=== PATIENT | female | born 1980 | race Caucasian/White ===

== ENCOUNTER 2020-01-26 01:54 | Emergency (ER) | payer BC ==
[2020-01-26] MEDS ORDERED: DIPHTH,PERTUSS(ACELL),TET 0.5 ML DISP.SYRIN IM ONE ×2 (01:58→01:59)
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
[2020-01-26 02:07] VITALS: BP 145/92; PULSE 86; TEMP 98.5; BMI 22.8
[2020-01-26] MEDS ORDERED: CEPHALEXIN MONOHYDRATE 500 MG CAPSULE (UD) ONE (02:35)
[2020-01-26] MEDS ORDERED: CEPHALEXIN MONOHYDRATE 500 MG CAPSULE (UD) PO ONE (02:49)
== END 2020-01-26 03:04 | disposition home or self-care (01) ==
LOC: FER 01:54
PROC: 0HQFXZZ Repair Right Hand Skin, External Approach (ICD-10-PCS; principal; 2020-01-26)
PROC: 3E0234Z Introduction of Serum, Toxoid and Vaccine into Muscle, Percutaneous Approach (ICD-10-PCS; principal; 2020-01-26)
DX: S63.601A Unspecified sprain of right thumb, initial encounter (principal); S61.411A Laceration without foreign body of right hand, initial encounter; Y99.8 Other external cause status
CPT/HCPCS: 73130-TC-RT-FY; 90715; 99283-25

== ENCOUNTER 2020-02-02 14:18 | Emergency (ER) | payer BC ==
[2020-02-02 14:25] VITALS: BP 118/79; PULSE 70; TEMP 99.1; BMI 22.8
--- NOTE | 2020-02-02 14:43 | PDOC ---
Documentation entered by Kaitlin Romo SCRIBE, acting as scribe for Fidel Schumacher MD. Fidel Schumacher MD: This documentation has been prepared by the rubyibDemetrius clemens Maria, SCRIBE, under my direction and personally reviewed by me in its entirety. I confirm that the documentation accurately reflects all work, treatment, procedures, and medical decision making performed by me. Suture Removal/Wound Check HPI - History of Present Illness Chief Complaint: Suture/Staple Removal(Here) Stated Complaint: SUTURE REMOVAL History Source: Yes: Patient Exam Limitations: Yes: No Limitations Treated at: [facility] ED - Previous ED Treatment Type of procedure performed on last visit: Yes: Laceration Repair Tetanus Immunization: Yes: Up to Date - Onset of Previous Treatment Date of Occurence: 01/26/20 Comment:: 02/02/20 14:48 Laceration dorsum of right wrist, sutured 7 days ago, no pain or drainage. Sutures removed from the dorsum of the right wrist. Wound is well healed. No sign of infection, no erythema warmth or drainage. Steri-Strips applied. Keep in place another 2 to 3 days. Follow-up if there is bleeding or sign of infection. Past History - Medical History Allergies/Adverse Reactions: Allergies Allergy/AdvReac Type Severity Reaction Status Date / Time azithromycin Allergy Intermediate Hives Verified 02/02/20 14:20 [From Zithromax Z-Reginaldo] Home Medications: Ambulatory Orders Thyroid,Pork [Nature-Throid] 130 mg PO DAILY 02/02/20 COPD: No Thyroid Disease: Yes - Immunization History Immunization Up to Date: No - Psycho-Social/Smoking History Smoking History: Never smoked Have you smoked in the past 12 months: No Information on smoking cessation initiated: No - Substance Abuse Hx (Audit-C & DAST Scrn) How often the patient has a drink containing alcohol: Monthly or less Number of drinks the patient has on a typical day: 1 or 2 How often the patient has six or more drinks on one occasion: Never Score: In Men: 4 or > Positive; In Women: 3 or > Positive: 1 Screen Result (Pos requires Nsg. Audit-10AR): Negative In the last yr the pt used illegal drug/Rx for NonMed reason: No Score: Yes response is considered Positive: 0 Screen Result (Positive result requires Nsg. DAST-10): Negative *Physical Exam - Vital Signs Last Vital Signs Temp Pulse Resp BP Pulse Ox 99.1 F 70 16 118/79 100 02/02/20 14:19 02/02/20 14:19 02/02/20 14:19 02/02/20 14:19 02/02/20 14:19 Discharge - Discharge Information Problems reviewed: Yes Clinical Impression/Diagnosis: Encounter for removal of sutures Condition: Improved Disposition: HOME - Admission No - Follow up/Referral - Patient Discharge Instructions Patient Printed Discharge Instructions: DI for Suture Removal - Post Discharge Activity
== END 2020-02-02 15:04 | disposition home or self-care (01) ==
LOC: FER 14:18
DX: S61.511A Laceration without foreign body of right wrist, initial encounter (principal); Z48.02 Encounter for removal of sutures
CPT/HCPCS: 99281-25

== ENCOUNTER 2021-07-20 15:06 | Emergency (ER) | payer OTHER ==
[2021-07-20 15:30] VITALS: BMI 25.8
[2021-07-20] MEDS ORDERED: BAMLANIVIMAB 700 MG, ETESEVIMAB 1,400 MG in SODIUM CHLORIDE 100 ML IVPB ONE (16:09)
[2021-07-20 18:26] VITALS: BP 120/75; PULSE 65; TEMP 98.6
== END 2021-07-20 19:20 | disposition home or self-care (01) ==
LOC: JCOVINFU 15:06
DX: U07.1 COVID-19 (principal)
CPT/HCPCS: 99284-25; Q0245